=== PATIENT | male | born 1985 | race Caucasian/White ===

== ENCOUNTER → 2020-03-05 12:24 | Outpatient (CLI) | payer BC, SELFPAY | PROVIDERS: PCP Family Medicine; Referring Provider Nurse Practitioner Primary Care; Visit Provider Nurse Practitioner Primary Care | DX: Z03.818 Encounter for observation for suspected exposure to other biological agents ruled out (principal) | CPT/HCPCS: 87635; G2023; U0004 ==

== ENCOUNTER 2021-10-01 13:53 | Outpatient (RCR) | payer BC, SELFPAY ==
--- NOTE | 2021-10-02 10:46 | HP.PTEVAL_ITS ---
Patient's Visit Information [facility] Rocael JUAN is a 36 year old M referred to Physical Therapy by Dr. Daysi Norwood DPM with a diagnosis of L posterior tibial tendinopathy, L plantar fasciitis, L ankle instability. Date of Evaluation: 10/02/21 Physical Therapist: Vaibhav Cardenas DPT - Visit Plan Frequency: 1x/Week Duration: 4 Weeks Plan: Start ankle and foot intrinsic strengthening. Progress DF ROM and proprioception exercises. Pt. desires to complete on own for 3-4 weeks then back with PT if needed. I will leave case open for 5-6 weeks. If I do not hear from him in that time frame I will DC back to physician. - Subjective Pt. is here today for his initial evaluation with diagnosis of L posterior tibial tendinopathy, L plantar fasciitis, L ankle instability with history of inversion ankle sprains. Pt. reports having increased L ankle pain for a few years now, but feels like it is getting worse. He thinks his history of frequent ankle sprains and 2 L knee surgeries with subsequent immobilizations have contributed. Pt. denies N/T. Pt. reports soreness across the anterior aspect of his ankle. 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 He does C/O increased symptoms when letting his ankle is propped on couch is sort of an anterior drawer position. He has doing some strengthening at home, mostly ankle circles with wt. He is hopeful to reduce symptoms in order to get back to all activities without limitations. He was recently fit with orthotics, awaiting to receive them at this point in time. - Pain L ankle Pain Intensity (Out of 10): 1 Pain Intensity Range: 0, 4 L plantar fascia region Pain Intensity (Out of 10): 0 Pain Intensity Range: 0, 1 - Objective POSTURE: Pt. has normal posture in stance. In SLS he has marked instability bilaterally L worse than R. He also has increased B foot pronation in SLS. PALPATION: No pain at plantar fascia bilaterally, pt. has mild pain at ATFL and deltoid ligament on L side. No Achilles pain noted. NEURO: normal sensation and DTR of BLEs. ROM: R ankle: DF 18deg, PF 48deg, INV 20deg, EVR 17deg. L ankle: DF 8deg, PF 43deg, INV 25deg, EVR 12deg. Pt. has normal knee ROM bilat. MMT: R ankle: 5/5 throughout; knee: 5/5 throughout; hip: flexion 5-/5, abd 4+/5, ext 4+/5. L ankle: DF 4+/5, PF 5-/5, EVR 4+/5, INVR 5-/5; knee: ext 5-/5, flexion 5- /5; hip: flexion 5-/5, abd 4+/5, ext 5-/5. Core strength: poor+. GAIT: pt. has fairly normal gait pattern, slight toeing out, but equal, normal DF during swing through phases. STAIRS: normal without HR. - Balance/Special Test Scores Lower Extremity Functional Score: 73 - Goals Goal 1:: LTG: Pt. to be I wit HEP. Goal Time Frame: 4-6 Weeks Goal 2:: STG: Pt. to have increased L ankle DF to at least 15deg. Goal Time Frame: 2-4 Weeks Goal 3:: STG: Pt. to be able to lie on couch without increase in L ankle pain. Goal Time Frame: 2 Weeks Goal 4:: LTG: Pt. to get back to running and playing with his children without increase in L ankle pain. Goal Time Frame: 4-6 Weeks Goal 5:: LTG: Pt. to have increased L ankle strength to 5/5 throughout without increase in symptoms. Goal Time Frame: 4-6 Weeks - Rehabilitation Potential Physical Therapy Diagnosis: Pt. has signs and symptoms consistent with L posterior tibial tendinopathy, L plantar fasciitis, L ankle instability with history of inversion ankle sprains. Pt. has marked weakness, slight loss of DF ROM and instability in SLS. He would benefit from PT to address the above limitations progressing back to all recreational activities without limitations. Rehabilitation Potential: Excellent - Anticipated Interventions Patient/Client Instruction: Educate patient on: Condition, Plan of Care, Risk Factors, Benefits of Fitness Program For the Purpose of:: To improve decision making, To facilitate caregiver knowledge, To improve self management, To prevent re-injury, To improve ability to perform tasks related to life management, To improve tolerance to ADL's Therapeutic Exercise to Include: Strength training, Power training, Endurance training, Balance training, Body mechanics, Flexibilty training, Active ROM For the Purpose of:: To decrease pain, To increase ROM, To improve nutrient delivery to tissue, To increase oxygenation perfusion, To improve muscle performance and motor function, To improve ability to perform ADL's, To improve health of tissue, To decrease soft tissue restriction, To increase flexibility/ROM Manual Therapy Techniques to Include: Mobilization, Passive ROM, Functional dry needling For the Purpose of:: To decrease pain, To increase ROM, To improve nutrient delivery to tissue Thank you for the opportunity to evaluate your patient. For Medicare and Medicare HMO plans, please review the plan of care and approve it. It will need to be FAXED BACK to us at [phone] for Medicare purposes. For Medicare only, by signing this I certify the plan of care. Please let me know if there are questions or concerns regarding this plan of care. Physician Signature: Date:
== END 2021-10-01 19:00 | disposition home or self-care (01) ==
LOC: PT 13:53
PROVIDERS: Referring Provider Podiatrist; Visit Provider Podiatrist
DX: M72.2 Plantar fascial fibromatosis (principal)
CPT/HCPCS: 97110; 97161

== ENCOUNTER 2023-11-18 10:13 | Outpatient (RCR) | payer BC, SELFPAY ==
--- NOTE | 2023-11-24 07:02 | HP.OTEVAL ---
Patient's Visit Information Visit Information Visit Information: MANI JUAN is a 38 year old M, referred to Occupational Therapy by Dr. Scott Merlos DO, with a diagnosis of left hand pain. Date of Evaluation: 11/18/23 Occupational Therapist: Shavon Nunn, OTR/Radha, CHT Subjective Subjective: This 38 year old male was seen for OT eval with dx of left IF MCP strain/pain in left hand. pt states when it is painful he has no strength due to the pain. Pt states this has been going on for about a year and a half. 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 will drive 3 hrs at most every. will have to move drums around ( 100-150#) will drums Pain left hand: Current Pain Intensity: 2 Pain Intensity Range: 3 ROM ROM Comments: pt demo with slight deviation of extensor tendon over MCP J of left MF Strength Marzipan Molder: right 145# left 125# Lateral Pinch: right 20 left 16# Tripod Pinch: right 20 left 22 Tip-to-Tip Pinch: right 8# left 8# Strength Comments: pt did have DIP sx on left hand about 5 years ago from cyst removal Sensation Sensation Comments: denies Quick DASH-Disab of Arm,Shoulder& Hand Quick DASH Score: 20.0000 Goals Goal:: Pt will demo understanding of work/lifting and carry ergonomics to decrease stress on tendons to increase pts independent with ADLs, IADLS and work tasks by d/c. Pt will demo understanding of using supportive bracing 80% of workday/ADLS to decrease stress on tendon origin to allow healing and decrease pain by end of 2nd session. Goal:: pt will demo understanding of orthosis use by end of 1st session to decrease stress on supportive structures and improve pts functional use of left hand with ADLs and IADLs. Rehabilitation General Assessment: pt demo slight ulnar slide of extensor tendon at left MCPJ and with tight composite fisting this increases his pain. Pt demo need for skilled OT services 1x week for 4 weeks to ed.pt on joint protection, avoidance of at lateral stain on MF MCP region. Today therapist tommy. custom relative motion orthosis this prevents Full tight composite fist and decreases lateral pull and strain on EDC and sagittal band. Pt was ed.in use and demo understanding and agree to POC. Rehabilitation Potential: Good Anticipated Interventions Anticipated Interventions: Strengthening, Triggerpoint Release, Modalities, Orthoses, Joint Protection/Energy Conservation, Ergonomic Education, Education re Diagnosis and Home Program Visit Plan Frequency: 1x/Week Duration: 4 Weeks General Plan: pt will use Relative Motion orthosis to limit stress on sagittal band stress on EDC. will initiate joint stabilization ex ed. on joint protection carrie. TEXT: Thank you for the opportunity to evaluate your patient. For Medicare and Medicare HMO plans, please review the plan of care and approve it. It will need to be FAXED BACK to us at [phone] for Medicare purposes. Please let me know if there are questions or concerns regarding this plan of care. Physician Signature: Date:
--- NOTE | 2023-11-24 07:10 | HP.OTEVAL ---
Patient's Visit Information Visit Information Visit Information: MANI JUAN is a 38 year old M, referred to Occupational Therapy by Dr. Scott Merlos DO, with a diagnosis of left hand pain. Date of Evaluation: 11/18/23 Occupational Therapist: LOLI Coker/Radha, CHT Subjective Subjective: This 38 year old male was seen for OT eval with dx of left IF MCP strain/pain in left hand. pt states when it is painful he has no strength due to the pain. Pt states this has been going on for about a year and a half. 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 will drive 3 hrs at most every. will have to move drums around ( 100-150#) will drums Pain left hand: Current Pain Intensity: 2 Pain Intensity Range: 3 ROM MP: R IF -20/90 L-5/90 R MF -20/90 L-10/95 R RF-10/90 L-10/100R LF-10/85 L-5/90 PIP: R If0/95 L 0/75 R MF 0/90 L 0/80 R RF 0/95 L 0/80 R LF 0/80 L 0/75 ROM Comments: pt demo with slight deviation of extensor tendon over MCP J of left MF Strength Instructional Support Specialist: right 145# left 125# Lateral Pinch: right 20 left 16# Tripod Pinch: right 20 left 22 Tip-to-Tip Pinch: right 8# left 8# Strength Comments: pt did have DIP sx on left hand about 5 years ago from cyst removal Sensation Sensation Comments: denies Quick DASH-Disab of Arm,Shoulder& Hand Quick DASH Score: 20.0000 Goals Goal:: Pt will demo understanding of work/lifting and carry ergonomics to decrease stress on tendons to increase pts independent with ADLs, IADLS and work tasks by d/c. Pt will demo understanding of using supportive bracing 80% of workday/ADLS to decrease stress on tendon origin to allow healing and decrease pain by end of 2nd session. Goal:: pt will demo understanding of orthosis use by end of 1st session to decrease stress on supportive structures and improve pts functional use of left hand with ADLs and IADLs. Rehabilitation General Assessment: pt demo slight ulnar slide of extensor tendon at left MCPJ and with tight composite fisting this increases his pain. Pt demo need for skilled OT services 1x week for 4 weeks to ed.pt on joint protection, avoidance of at lateral stain on MF MCP region. Today therapist tommy. custom relative motion orthosis this prevents Full tight composite fist and decreases lateral pull and strain on EDC and sagittal band. Pt was ed.in use and demo understanding and agree to POC. Rehabilitation Potential: Good Anticipated Interventions Anticipated Interventions: Strengthening, Triggerpoint Release, Modalities, Orthoses, Joint Protection/Energy Conservation, Ergonomic Education, Education re Diagnosis and Home Program Visit Plan Frequency: 1x/Week Duration: 4 Weeks General Plan: pt will use Relative Motion orthosis to limit stress on sagittal band stress on EDC. will initiate joint stabilization ex ed. on joint protection carrie. TEXT: Thank you for the opportunity to evaluate your patient. For Medicare and Medicare HMO plans, please review the plan of care and approve it. It will need to be FAXED BACK to us at [phone] for Medicare purposes. Please let me know if there are questions or concerns regarding this plan of care. Physician Signature: Date:
--- NOTE | 2024-01-26 08:20 | HP.OTDCNRP_ITS ---
Patient Information Patient Information: [facility] ADELSO JUAN was seen in my office for initial evaluation on 11/18/23. The following Plan of Care was established for this patient: POC Established Initial Frequency: 1x/Week Initial Duration: 4 Weeks Anticipated Interventions Anticipated Interventions: Strengthening, Triggerpoint Release, Modalities, Orthoses, Joint Protection/Energy Conservation, Ergonomic Education, Education re Diagnosis and Home Program Last Seen Last Seen: This patient was last seen in our office 11/18/23. Pertinent comments regarding their Occupational therapy will appear below: pt was seen for OT Eval only. Pt has not scheduled further apts and is d/c at this time due to time lapse in services. At this point I will be discontinuing this patient from occupational therapy. I would be happy to see this patient again in the future if found appropriate by the physician. Thank you! Shavon Nunn, OTR/L, CHT
== END 2023-11-18 19:00 | disposition home or self-care (01) ==
LOC: OT 10:13
PROVIDERS: PCP Nurse Practitioner Primary Care; Referring Provider Student in an Organized Health Care Education/Training Program; Visit Provider Student in an Organized Health Care Education/Training Program
DX: S63.651D Sprain of metacarpophalangeal joint of left index finger, subsequent encounter (principal); M79.642 Pain in left hand
CPT/HCPCS: 97166

== ENCOUNTER 2024-01-03 15:03 | Emergency (ER) | payer BC, SELFPAY ==
[2024-01-03 15:04] VITALS: BP 165/112; PULSE 70; RESP 18; TEMP 36.3; O2SAT 100; BMI 26.4
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
[2024-01-03 17:04] VITALS: BP 145/65; PULSE 78; RESP 16; O2SAT 99
[2024-01-03] MEDS: Tetracaine 0.5% Ophthalmic Bottle 2 DRP LEFT EYE (17:27)
[2024-01-03 19:00] VITALS: BP 115/79; PULSE 65; RESP 14; O2SAT 99
--- NOTE | 2024-01-03 19:16 | ED.RN ---
1914: patient was found trying to exit the building prior to discharge, I attempted to reassure them that the provider will be in to assess them TJ. Doctor Sheldon notified. 1918: Dr. Chung to bedside to examine patient and start discharge.
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
[2024-01-03 19:36] VITALS: BP 144/84; PULSE 66; RESP 16; TEMP 36.6; O2SAT 98
[2024-01-03] MEDS: Erythromycin Base 1 OPTH.TUBE 1 APPLIC LEFT EYE (19:40)
== END 2024-01-03 19:42 | disposition home or self-care (01) ==
PROVIDERS: Emergency Provider Emergency Medicine; PCP Nurse Practitioner Primary Care; Visit Provider Emergency Medicine
DX: T26.12XA Burn of cornea and conjunctival sac, left eye, initial encounter (principal); S05.02XA Injury of conjunctiva and corneal abrasion without foreign body, left eye, initial encounter; X58.XXXA Exposure to other specified factors, initial encounter
CPT/HCPCS: 99284; J7030

== ENCOUNTER → 2024-01-07 | Outpatient (CLI) | payer BC, SELFPAY ==
[2024-01-07 10:18] LABS: Estradiol 25.4 pg/mL; Follicle Stimulating Hormone 6.2 mIU/mL; Luteinizing Hormone 2.7 mIU/mL
[2024-01-08 08:08] LABS: Sex Hormone-binding Globulin 32.4 nmol/L (16.5-55.9)
== END | disposition home or self-care (01) ==
PROVIDERS: PCP Nurse Practitioner Primary Care; Referring Provider Nurse Practitioner Primary Care; Visit Provider Nurse Practitioner Primary Care
DX: R79.89 Other specified abnormal findings of blood chemistry (principal)
CPT/HCPCS: 36415; 82670; 83001; 83002; 84270